=== PATIENT | male | born 1925 | race Caucasian/White ===

== ENCOUNTER 2016-10-31 17:55 | Inpatient (IN) | payer MEDICARE, BC ==
[~2016-10-31] VITALS: Ht 182.9 cm; Wt 60.1 kg
--- NOTE | ~2016-10-31 | CON ---
PATIENT'S NAME: THOMAS MARKS [facility] AGE: 89 Y [address] ROOM: [id number] [place], [place] [address] LOCATION: GPCU ADMIT DATE: 10/31/2016 Consultation DISCHARGE DATE: FAMILY PHYSICIAN: AIMEE CANADA APRN ATTENDING PHYSICIAN: SHAMAR LERNER DATE OF CONSULTATION: 11/01/2016 REFERRING PHYSICIAN: HARSHA ALBERTS MD A consult to Dr. Morocho. HISTORY OF PRESENT ILLNESS: Thomas Schwartz is an 89-year-old man with an uncharacterized right hilar mass. The history of the present illness is obtained from Mr. Marks, who is a good historian; his son; review of the records by our colleagues in [place], [place]; and from review of the current [facility] record. Mr. Marks was in his normal state of health until early 2013. He [place] with Mrs. Marks. 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 He was on chronic oxygen at 2 L per nasal cannula 24 hours a day. He had a part-time cane. He could drive and sometimes go shopping. Over the last 6 months, his performance status has fallen. He uses a cane, and he needs assist with showering, though he can toilet on his own. He is on no formal or informal exercise or rehabilitation program. He develops dyspnea on exertion if he walks 20 feet on a level surface. He has no cough, but has chronic wheezing. He has become anorexic and has lost 20 pounds over the last 4 months. He is no longer driving a car or shopping. On 10/27/2016, his feet were tangled in his oxygen tank tubes, and he fell. The patient experienced some discomfort in his right hip which still persists, though it is improving. The pain was not disabling enough to seek assistance. However, he has developed progressive dyspnea over the last few days. When the dyspnea persisted, his family insisted he seek medical attention. On 10/31/2016, the patient saw Aimee Canada NP. At that point, the white count was 16,580. The patient had 81% neutrophils and 3% lymphocytes. The hemoglobin was 12 G/dL, the MCV was 99, and the platelets were 197,000. The general chemical profile was unremarkable. A PA and lateral chest film showed a screw fixation in the left humerus. There was a 5.2 cm spiculated mass in the right hilum with subpleural opacities along the upper lobe of the right lung measuring 2.8 to 1.8 cm. There were numerous punctate nodules with interlobular septal thickening, retractile fibrosis, and associated postobstructive atelectasis. There were apical predominant centrolobular emphysematous cysts. There was left basilar platelike atelectasis. A CAT PATIENT'S NAME: THOMAS MARKS [facility] AGE: 89 Y [address] ROOM: [address] [address] LOCATION: GPCU ADMIT DATE: 10/31/2016 Consultation DISCHARGE DATE: FAMILY PHYSICIAN: AIMEE CANADA APRN ATTENDING PHYSICIAN: SHAMAR LERNER A scan of the chest was recommended and performed. The scan confirmed the presence of these abnormalities. The patient was transferred to [facility] for subspecialty evaluation. The patient smoked 1 pack per day of cigarettes for 65 to 70 years, but has abstained for 3 months due to dyspnea. 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 ACTIVE MEDICAL PROBLEMS, CHRONIC AND DIAGNOSED: 1. COLD, treated with continuous oxygen. The patient had pneumonia 45 years ago. The patient has been on albuterol bronchodilators as well. 2. Benign prostatic hypertrophy, treated with alpha blockers. 3. Atherosclerotic heart disease found when the patient required preoperative clearance prior to surgery to fix his right hip. A stent was placed in one of his coronary arteries. 4. Hyperlipidemia. The family and the patient were unaware of this diagnosis which is listed. 5. 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 6. ? Cholelithiasis, ? sludge. The CT scan of the abdomen and pelvis performed at [facility] revealed sludge or sand-like stones in the gallbladder. 7. Tobacco use, one pack per day for 65 to 70 years, abstained since June 2016. 8. Postherpetic neuralgia in a left lumbar dermatome. This is mild. 9. Atherosclerotic vascular disease. The patient has a 4.3 cm infrarenal abdominal aortic aneurysm noted on CAT scan. ACUTE MEDICAL ILLNESSES (RESOLVED), PAST SURGERIES, INJURIES: 1. 1958 - appendectomy. 2. 1996 - TURP for BPH. 3. 2010 - right hip fracture open reduction and internal fixation. This was a result of an injury sustained in a fall. 4. 2012 - right and left cataract extractions. 5. 2013 - left collarbone fracture. 6. 2013 - bilateral inguinal hernia repairs. 7. 2014 - Varicella zoster virus in a left lumbar dermatome. MEDICATIONS UPON HOSPITALIZATION: 1. Albuterol. 2. Cephalexin. PATIENT'S NAME: THOMAS MARKS [facility] AGE: 89 Y [address] ROOM: [place] [address] [facility]: [facility] ADMIT DATE: 10/31/2016 Consultation DISCHARGE DATE: FAMILY PHYSICIAN: AIMEE CANADA APRN ATTENDING PHYSICIAN: SHAMAR LERNER 3. Docusate. 4. Tamsulosin. 5. Tramadol. ADVERSE REACTIONS TO MEDICATIONS, TRANSFUSIONS, ALLERGIES: 1. No known allergies. 2. NO history of transfusions. TOBACCO: One pack per day for 65 to 70 years, abstained since June 2016. ALCOHOL: None for 6 years. One alcoholic beverage a week prior to that. CAFFEINE: Ten cups of coffee per day. IMMUNIZATIONS: Negative flu, negative Pneumovax, positive tetanus. FAMILY HISTORY: A paternal aunt of cancer, type unknown. SOCIAL HISTORY: The patient was born and raised in [place]. 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 He saw combat. 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 They have a son in [place], [place], and a daughter in [place], [place]. The patient is a Buddhism. REVIEW OF SYMPTOMS: 1. Persistent symptoms of BPH with nocturia 4 times a night, slow stream, dribbling, and incomplete voiding. 2. Longstanding stool softener. 3. Mild orthostatic dizziness. 4. He has been scratching a mole on his left hip. PHYSICAL EXAMINATION: VITAL SIGNS: Pulse 72 and regular, blood pressure 110/90, respiratory rate 16, temperature 98.1 and SpO2 of 95% on 2 L. Height 72 inches, weight 54.3 kg (120 pounds), and BMI 16.2 kg/m2. GENERAL: Well-developed, underweight, cachectic, frail, 89-year-old male in no acute distress. HEENT: Unremarkable. LYMPH NODES: Not palpable. PATIENT'S NAME: THOMAS MARKS [facility] AGE: 89 Y [address] ROOM: [address] [address] LOCATION: [facility] ADMIT DATE: 10/31/2016 Consultation DISCHARGE DATE: FAMILY PHYSICIAN: AIMEE CANADA APRN ATTENDING PHYSICIAN: SHAMAR LERNER NECK: Without JVD or carotid bruits. SKIN: Solar and seborrheic keratoses, godinez angiomas, and senile purpura on the dorsal aspect of the forearms. CHEST: Greatly decreased breath sounds bilaterally. CARDIOVASCULAR: Decreased S1 and S2. No murmurs, bruits, or adventitious sounds. ABDOMEN: Healed incision around 10 cm in length, vertical, just lateral to the umbilicus. No masses, tenderness, or megaly. GENITALIA AND RECTAL: Uncircumcised. Casarez catheter in place. EXTREMITIES: Compression devices present on the lower legs. Socks are present. The patient has fingernail clubbing and tobacco stains present. NEUROLOGIC: The patient moves all 4 extremities and is alert and appropriate. IMPRESSION: 1. An 89-year-old man with progressive anorexia, weight loss, fatigue, and dyspnea in association with mild normocytic anemia and a spiculated 5.2 cm right suprahilar mass with spiculated subpleural opacities. The mass has increased from 4 cm in March of 2016. 2. 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 RECOMMENDATIONS: Diagnostic: 1. Consult Pulmonary for consideration of bronchoscopy with biopsy. 2. Further staging studies depend on the results on the tissue, the prognosis and outlook without them, and the potential therapeutic choices. Treatment: 1. No antineoplastic therapy at this point. 2. Continue other medications. Patient Education: 1. Told that it is most likely he has tobacco-related lung cancer. 2. I made the point that if we confirm the diagnosis, we would weigh the pros and cons of staging x-rays, testing the tissue for biomarkers, and treatment choices. 3. Acknowledge we are not 100% sure it is cancer without a biopsy. MD MO CHEUNG/gregory PATIENT'S NAME: THOMAS MARKS [facility] AGE: 89 Y [address] ROOM: [place] [address] LOCATION: [facility] ADMIT DATE: 10/31/2016 Consultation DISCHARGE DATE: FAMILY PHYSICIAN: AIMEE CANADA APRN ATTENDING PHYSICIAN: SHAMAR LERNER /[id number] CC: AIMEE CANADA APRN d: 11/01/16 1713 t: 11/02/16 1617, CONSULTATION REPORT
--- NOTE | ~2016-10-31 | ECHO ---
Transthoracic Echocardiography Report (TTE) Demographics Patient Name THOMAS MADDOX Date of Study 11/02/2016 Patient Number [id number] Visit Number [id number] Date of 1925 Room Number G6321 Accession Number [id number] Gender Male Age 89 year(s) Referring Shaheen Farias MD Mold Cutting Machine Operator Tamanna Smith RVT Physician Nancie Sauceda MD Physician Interpreting [facility] Line Operator Physician Sulma BOWMAN Supervising Ordering Physician Shaheen Farias MD/EDMUNDO BOWMAN Nurse Stress Pen And Pencil Repairer Conclusions Contractility Score Summary Normal Left Ventricular contractility was noted. Summary Normal LV size and systoilc function. The estimated left ventricular ejection fraction is 55-60%. Diastolic assessment reveals Grade I diastolic dysfunction. Mildly dilated RV with normal RV systolic function. Negative bubble study. Mild calcification of the mitral valve. No significant valvular abnormalities. No evidence of pericardial effusion. Procedure Type of Study TTE procedure:2D Echocardiogram. Procedure Date Date: 11/02/2016 Start: 07:58 AM Study Location: Inpatient Portable Technical Quality: Adequate visualization Indications:Dyspnea/SOB and Shortness of breath. Appropriate Use Criteria: 9 Patient Status: Routine HR: 57 bpm BP: 124/60 mmHg M-Mode/2D Measurements LV Diastolic Dimension: 4.46 cm LV Systolic Dimension: 3.07 cm LV Septum Diastolic: 0.91 cm LV PW Diastolic: 1.01 cm AO Root Dimension: 2.2 cm Cardiac Output: 3.88 l/min AV Cusp Separation: 1.7 cm RV Diastolic Dimension: 2.22 cm LVOT: 2 cm LVOT VTI: 21.7 cm RV Base: 2.34 cm LV Stroke volume: 68.14 ml RV Length: 5.24 cm TAPSE: 2.14 cm TDI-S': 13 cm/s Doppler Measurements AV Peak Velocity: 1.45 m/s MV Peak E-Wave: 0.66 m/s AV Peak Gradient: 8.41 mmHg MV Peak A-Wave: 0.91 m/s AV Mean Gradient: 4 mmHg MV E/A Ratio: 0.72 LVOT Peak Velocity: 0.9 m/s MV P1/2t: 73 msec TR Gradient:19.54 mmHg PV Peak Velocity: 0.82 m/s Estimated RAP:10 mmHg PV Peak Gradient: 2.69 mmHg Estimated RVSP: 30 mmHg Estimated PASP: 29.54 mmHg E' Septal Velocity: 0.08 m/s A' Septal Velocity: 0.13 m/s E' Lateral Velocity: 0.08 m/s A' Lateral Velocity: 0.13 m/s Findings Left Ventricle Diastolic assessment reveals Grade I diastolic dysfunction. Right Ventricle Mildly dilated RV with normal RV systolic function. Left Atrium Normal left atrial size. Right Atrium IVC measures 1.8 cm with partial inspiratory collapse. Negative bubble study. Mitral Valve Mild calcification of the mitral valve. Aortic Valve Normal aortic valve structure and function. Tricuspid Valve Trivial tricuspid regurgitation by color Doppler. Pulmonic Valve Normal pulmonic valve structure and function. Pericardial Effusion No evidence of pericardial effusion. Miscellaneous Visualized portions of the aortic root and ascending aorta appear normal in size. Pleural Effusion No evidence of pleural effusion. Contractility Score LV regional wall motion:(0-Non visualized 1-Normal 2-Hypokinesis 3-Akinesis 4-Dyskinesis 5-Aneurysm) Signature dtt: SULMA PLASCENCIA dtd: 11/02/16 0758 Physician Self Edit
--- NOTE | ~2016-10-31 | HP ---
PATIENT'S NAME: THOMAS MADDOX [facility] AGE: 89 Y [address] ROOM: G6321 [place], [place] [address] [facility] ADMIT DATE: 10/31/2016 History & Physical DISCHARGE DATE: FAMILY PHYSICIAN: AIMEE HAWK APRN ATTENDING PHYSICIAN: SHAMAR LERNER DATE OF SERVICE: CHIEF COMPLAINT: Shortness of breath and productive cough, worsening since yesterday. HISTORY OF PRESENT ILLNESS: This is an 89-year-old male, who has a longstanding history of smoking for more than 70 years. He quit just roughly three months ago. He smokes about one pack per day. He has a history of COPD with 2 L of oxygen nasal cannula 24 at home. The story is that at baseline, his COPD, he has a daily yellowish productive cough with exertional dyspnea. He says that roughly one week ago, when he was at home walking, he tripped and he fell, but he denies any loss of consciousness or any head trauma. Yesterday, he has been having this worsening cough and worsening shortness of breath. Therefore, he went to see his primary care provider, who in return referred him to the [facility] for evaluation. He was there for one day yesterday, where they treated him with IV Levaquin for a post-obstructive pneumonia based on the chest x-ray and on the CT scan of the chest that were performed yesterday. The CT scan yesterday showed there was a right suprahilar mass concerning for malignancy. Given the leukocytosis and the worsening cough and shortness of breath, the patient was treated with a chronic obstructive pulmonary disease exacerbation with IV Levaquin and some steroids, and also some nebulization and oxygen. Due to the mass that required biopsy to confirm malignancy, the patient was referred here today for further care. Besides that, the patient denied any other complaints. REVIEW OF SYMPTOMS: As mentioned in the history of present illness. All other systems were reviewed and they were negative, except those mentioned in the history of present illness. PAST MEDICAL HISTORY: 1. Benign prostatic hypertrophy. 2. Coronary artery disease, status post one stent placed 6 years ago. 3. COPD, on 2 L oxygen nasal cannula 24/7. 4. Hyperlipidemia. PATIENT'S NAME: [facility] AGE: 89 Y [address] ROOM: [place] [address] LOCATION: GPCU ADMIT DATE: 10/31/2016 History & Physical DISCHARGE DATE: FAMILY PHYSICIAN: AIMEE HAWK APRN ATTENDING PHYSICIAN: SHAMAR LERNER ALLERGIES: NONE. HOME MEDICATIONS: Currently have been reconciled. SOCIAL HISTORY: He is a former cigarette smoker. He smoked about one pack per day for 70 years. He quit about 3 months ago. He denies any alcohol and denies any illegal drug use. PAST SURGICAL HISTORY: 1. Bilateral inguinal hernia surgery in the past. 2. Appendectomy. 3. Cardiac stents placed x1 five years ago. 4. Right hip surgery in the past. 5. Left shoulder surgery in the past. FAMILY HISTORY: Both parents from old age. He does not remember much about their past medical problems. PHYSICAL EXAMINATION: VITAL SIGNS: Temperature was 98, blood pressure was 138/95, respirations were 16, saturations were 92% on 2 L nasal cannula, and heart rate was 86. GENERAL APPEARANCE: Alert and oriented x3. Currently, in no acute distress. HEENT: Pupils were equally round and reactive to light. Extraocular muscles are intact. Anicteric sclerae. Nasal turbinates are normal bilaterally. Moist oral mucosa. NECK: No JVD. CARDIOVASCULAR: Regular rate and rhythm. No murmur. No rubs. No gallops. Normal S1 and S2. RESPIRATORY: Decreased breath sounds diffusely. No obvious wheezing, crackles, rales, or rhonchi. ABDOMEN: Soft, nontender, and nondistended. Bowel sounds were present. No mass. EXTREMITIES: No edema in upper or lower extremities. NEUROLOGICAL: Grossly nonfocal. SKIN: No ulcer. No rash. No cyanosis. LABORATORY DATA: Currently, all labs are pending. They have been drawn right now. IMAGING STUDIES: Chest x-ray and the CT scan of the chest were performed from the outside PATIENT'S NAME: THOMAS MADDOX [facility] AGE: 89 Y [address] ROOM: [place] [address] LOCATION: GPCU ADMIT DATE: 10/31/2016 History & Physical DISCHARGE DATE: FAMILY PHYSICIAN: AIMEE HAWK APRN ATTENDING PHYSICIAN: SHAMAR LERNER A facility yesterday, and the imaging was already put in the PACS. The CT scan of the chest showed that there was a large right suprahilar mass concerning for malignancy. Refer to the report in the chart for details. Currently, the chart is in the front office manager. ASSESSMENT AND PLAN: 1. Regarding his acute on chronic respiratory failure secondary to chronic obstructive pulmonary disease exacerbation from sepsis from post-obstructive pneumonia in the setting of a lung mass concerning for malignancy (sepsis order set completed and is in chart, sepsis time detected at 10:30PM): Treating the chronic obstructive pulmonary disease exacerbation with triple antibiotics of IV Levaquin, IV Zosyn, and IV vancomycin and also nebulizations with DuoNeb and albuterol as well as Solu-Medrol for steroids. Oxygen nasal cannula to keep saturation for more than 88%. Also, sputum culture for Gram stain, also urinalysis, and also urine for antigen for Legionella and also for pneumococcal. I will get a Pulmonology consult in the morning for possible bronchoscopy to do a biopsy. In addition, we will get an Oncology consult for further management for the high likelihood of lung cancer. To screen for metastasis, I will also get a CT of abdomen and pelvis tomorrow morning to rule out any possible distant metastases. The patient denies any neurological symptoms at the moment. I will not do a CT scan of the head unless he exhibits any neurological symptoms or deficits. N.p.o. after midnight. Further plan will depend on clinical course. We will also get a sputum culture Gram stain. For cough, I will do the Mucinex. 2. Regarding his chronic coronary artery disease: Currently, no active issue. He denies any chest pain. Continue telemetry monitoring. 3. Regarding his benign prostatic hypertrophy: We will continue the home medication including Flomax. The patient currently denies any urinary difficulty. 4. Regarding his hyperlipidemia: The home medications currently are being reconciled. If he is on any medication for cholesterol, we will continue that. 5. He is a do not resuscitate/do not intubate. 6. Deep venous thrombosis prophylaxis. We will do compression devices. Time spent in care on the day of admission was 45 minutes, where 10 minutes was spent on chart review, and the remainder of the time was spent in interview and the physical examination and counseling. The consult includes going over the plan of care in detail with the patient and the patient's son at the bedside. In addition, I answered all their questions and their concerns to their satisfaction. In addition, I went over the plan of care in detail with the nurse. Further plan will depend on clinical course. I also went over the plan of care with the Respiratory therapist. PATIENT'S NAME: THOMAS MADDOX [facility] AGE: 89 Y [address] ROOM: [address] [address] [facility] ADMIT DATE: 10/31/2016 History & Physical DISCHARGE DATE: FAMILY PHYSICIAN: AIMEE HAWK APRN ATTENDING PHYSICIAN: SHAMAR LERNER MD FERNY BLAKELY/gregory /[id number] D: [id number] T: [id number] HISTORY & PHYSICAL
--- NOTE | ~2016-10-31 | CON ---
PATIENT'S NAME: THOMAS MADDOX [facility] AGE: 89 Y [address] ROOM: [id number] [place], [place] [address] LOCATION: GPCU ADMIT DATE: 10/31/2016 Consultation DISCHARGE DATE: 11/03/2016 FAMILY PHYSICIAN: AIMEE HAWK APRN ATTENDING PHYSICIAN: Kati Parks DATE OF CONSULTATION: 11/01/2016 REFERRING PHYSICIAN: Gianna Maguire MD INDICATION: Right lung mass with possible need for bronchoscopy with biopsies. HISTORY OF PRESENT ILLNESS: This is an 89-year-old male, transferred from [facility] last night for higher level of care. He has a history of COPD, chronic respiratory failure, tobacco use up until about 3 months ago, CAD, BPH, and elevated cholesterol. He reports that he has had COPD for "years," but no history of exacerbations or hospitalizations. He has never had PFTs. He uses albuterol at home and no other inhalers. He was placed on oxygen 2 L per nasal cannula continuously about 3 years ago. His baseline dyspnea on exertion is fairly severe with him only being able to do minimal activity. He also notes a productive cough with yellow white sputum. He reports a week ago he had a mechanical fall and the other day his son who checks on him daily noticed that he appeared more short of breath than usual, so he was taken to the clinic for evaluation. At the clinic, they subsequently sent him to the hospital where he had a chest x-ray and then a CT of the chest showing a hilar mass along with other nodules, severe emphysema and atelectasis. The concern is for malignancy, so the patient was sent here for possible biopsies. He was started on antibiotics and steroids for postobstructive pneumonia at the [facility], and is currently on Zosyn, Levaquin, and vancomycin IV. He was given 125 mg of Solu- Medrol initially and today I start 60 mg b.i.d. Currently, he reports that he is comfortable at rest, but with just sitting at the side of the bed, he is short of breath and gets very winded. This is a little worse than usual. He denies any hemoptysis, wheezing, increased cough, edema, lightheadedness, or chest pain. He reports excessive daytime sleepiness, weight loss, and poor appetite. He denies any fevers, chills, nausea, or vomiting. He has been a smoker for over 70 years 1 pack per day at least and quit 3 months ago. PAST MEDICAL HISTORY: Includes COPD, chronic respiratory failure, tobacco use, CAD, BPH, and elevated cholesterol. ALLERGIES: SEE MAR. PATIENT'S NAME: THOMAS MADDOX [facility] AGE: 89 Y [address] [place] [facility] [place] [address] LOCATION: GPCU ADMIT DATE: 10/31/2016 Consultation DISCHARGE DATE: 11/03/2016 FAMILY PHYSICIAN: AIMEE HAWK APRN ATTENDING PHYSICIAN: Kati Parks MEDICATIONS: See MAR. FAMILY HISTORY: Denies any family history of lung disease. SOCIAL HISTORY: He lives alone, but has family who checks on him frequently. He is a former tobacco user for 70 years, at least 1 pack per day and quit 3 months ago. REVIEW OF SYSTEMS: All review of systems are negative except what is noted in the HPI. PHYSICAL EXAMINATION: VITAL SIGNS: Blood pressure 117/86, pulse 84, respirations 18, and temperature 98.3. He is 97% on 3 L O2. GENERAL: This is an 89-year-old, frail appearing male, who is alert and oriented x3 and appears in no acute distress at the time of exam. HEENT: Head: Normocephalic, atraumatic. Eyes, clear. NECK: Supple. No adenopathy. No carotid bruits or JVD. LUNGS: With a few rales and rhonchi at the bases. HEART: Regular rate and rhythm without murmur, gallop, or rub. ABDOMEN: Soft, nontender, nondistended. Bowel sounds x4. EXTREMITIES: No cyanosis, clubbing, or edema. DIAGNOSTIC DATA: ABG showed a pH of 7.38, pCO2 of 45, pO2 of 74, bicarb 29.9. Lactate 0.9. ProBNP 576. Sodium 140, potassium 4.1, BUN 18, creatinine 1.2. WBC 6.7, hemoglobin 9.7, hematocrit 30.1, platelets 157. Procalcitonin 0.4. ASSESSMENT AND PLAN: 1. Right lung mass, which is concerning for malignancy. 2. Rftay-tn-lyojekj respiratory failure, improved secondary to chronic obstructive pulmonary disease exacerbation. 3. Chronic obstructive pulmonary disease exacerbation, improved. Currently on Zyvox, Levaquin, and IV Zosyn along with IV Solu-Medrol 60 mg b.i.d., along with bronchodilators every 4 hours. 4. Former tobacco use. 5. Weight loss. 6. Elevated proBNP, consider echo. 7. Severe emphysema on recent CT, without any history of PFTs. Overall, the patient has a poor functional status score of 4; diagnosed with a right upper lung mass, suspicious of malignancy. CT of the abdomen and pelvis done did not reveal any metastatic disease, but he will need further staging PATIENT'S NAME: THOMAS MADDOX [facility] AGE: 89 Y [address] ROOM: [id number] [place] [id number] LOCATION: GPCU ADMIT DATE: 10/31/2016 Consultation DISCHARGE DATE: 11/03/2016 FAMILY PHYSICIAN: AIMEE HAWK APRN ATTENDING PHYSICIAN: Kati Parks done with CT of the chest with contrast, PET scan, and MRI of the brain. We discussed the options with the patient and family that he has a very high risk of being ventilator dependent if he gets electively intubated and placed on a mechanical ventilation for the bronchoscopy and biopsy. Even if malignancy is diagnosed, he is not a surgical candidate from a pulmonary standpoint considering end-stage lung disease and O2 dependency and his poor functional status. He will probably not be a suitable candidate for chemotherapy as well, although there is some role of immunotherapy in certain types of lung cancer, but it is uncertain how much those are going to be helpful in improving his quality of life and offering him survival benefit of meaningful duration. We discussed with Oncology and the patient's family about the above details. They are going to talk amongst themselves and consider the options. If they decide to go forward with the procedure after considering the above facts and accepting the high-risk of ventilatory dependency, we will do a bronchoscopy with endobronchial biopsies tomorrow. Further recommendations will be made pending their decisions and the course of his stay. Thank you for the consultation and participation in the patient's care. JENNIFER VELOZ APRN FOR MD ZOILA HOANG/modl /[id number] d: 11/20/16 1035 t: 12/04/16 1710, CONSULTATION REPORT
--- NOTE | ~2016-10-31 | DS ---
PATIENT'S NAME: THOMAS MADDOX [facility] AGE: 89 Y [address] ROOM: [address] [place], [place] [address] LOCATION: GPCU ADMIT DATE: 10/31/2016 Discharge Summary DISCHARGE DATE: 11/03/2016 FAMILY PHYSICIAN: AIMEE HAWK APRN ATTENDING PHYSICIAN: Kati Parks FINAL DIAGNOSES: 1. Rzfos-uh-qllvlmz hypoxic respiratory failure. 2. Right lung mass. 3. Postobstructive pneumonia. 4. Chronic obstructive pulmonary disease exacerbation. 5. Coronary artery disease. 6. Benign prostatic hypertrophy. 7. Dyslipidemia. HISTORY OF PRESENT ILLNESS: Please see the history and physical dictated by Dr. Morocho. In short, the patient was transferred from the [facility] after presenting there with an elevated white blood cell count. Chest x-ray did show a mass in the hilum and evidence of a pneumonia; subsequently, a CT scan, which did confirm the 5.2 cm right hilar mass and the postobstructive pneumonia. At that time, he was transferred to [facility] for potential bronchoscopy as well as ability to get Oncologic Services. The patient also had hqlvb-ly-ydtpcki hypoxic respiratory failure. LABORATORY DATA: On admission, pH 7.43, pCO2 45, pO2 74, and O2 sat was 95% on 3 L. Sodium on admission was 138, potassium 3.9, chloride 102, CO2 29, BUN 19, creatinine 1.4, and magnesium 2.1. Pro-BNP 576. Hemoglobin A1c was 5.7. White blood cell count on admission was 9.3 with a hemoglobin of 10.1, hematocrit 39.1, MCV 97.9, and platelet count 153. PTT 31, pro-time 11.2, INR 1.07. Procalcitonin on admission was 0.46. Urinalysis did not show any evidence of infection. X-RAY DATA: CT scan of the abdomen and pelvis looking for potential metastases did not show any evidence of metastatic disease. 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 A chest x-ray showed a large spiculated mass in the right parahilar region. CARDIOLOGY DATA: Echocardiogram returned showing the ejection fraction to be 55% to 60%. He had grade 1 diastolic dysfunction. He had a mildly dilated right ventricle, negative bubble study. HOSPITAL COURSE: The patient was admitted to the floor and started on IV Levaquin and IV Zyvox for postobstructive pneumonia. Pulmonary was consulted for bronchoscopy. Oncology was consulted. CT scan of the abdomen and pelvis was obtained. The patient was kept n.p.o. overnight for potential PATIENT'S NAME: THOMAS MADDOX [facility] AGE: 89 Y [address] ROOM: [address] [address] LOCATION: GPCU ADMIT DATE: 10/31/2016 Discharge Summary DISCHARGE DATE: 11/03/2016 FAMILY PHYSICIAN: AIMEE HAWK APRN ATTENDING PHYSICIAN: Kati Parks bronchoscopy. It was postponed because of not having older records available to assess his pulmonary functions. His oxygen requirements decreased to his usual level at home. Pulmonary did review the data and there was concern that he would be very high-risk for morbidity from having the bronchoscopy. Dr. Tristan Garcia did see him from an oncologic standpoint and without having the ability to do a biopsy that there is really not much that could be done in terms of treatment. He did discuss with them hospice or Palliative Care consult. The family did state that at this time that they would like to be able to return to home. Arrangements were made for the patient to be accepted at the [facility] on the morning of November 03. He will have a regular diet. He is in no intubation and no code. We did talk about Hospice Services. Weightbearing as tolerated. PT, OT, and oxygen at 2 L per nasal cannula. MEDICATIONS: 1. Lovenox 40 mg subcu every 24 hours. 2. Humibid LA 1200 mg twice daily. 3. NovoLog mild sliding scale. 4. Flomax 0.4 mg at bedtime. 5. DuoNeb inhaled every 4 hours during the day. 6. Tylenol 650 mg every 4 hours as needed for pain or temp. 7. Dextrose 25 mL on sliding scale on the hypoglycemia protocol. 8. Glucagon 1 mg subcu on the hypoglycemia protocol. 9. Glucose 16 mg on the hypoglycemia protocol. 10. Colace 100 mg twice daily. 11. Albuterol inhaled every 2 hours as needed for shortness of breath or cough. 12. Tramadol 50 mg twice daily p.r.n. pain. 13. Invanz 1 g IV q.24 h. through November 10. 14. Levaquin 750 mg every 48 hours through November 10. 15. Prednisone 20 mg twice daily for 7 days then 20 mg daily for 7 days then 10 mg daily for 7 days then 5 mg daily. 16. Florastor 250 mg twice daily. PROGNOSIS: Overall, prognosis at discharge is poor. We will ask for hospice consult. I did discuss this with Dr. Lozano and also discussed this with Dr. Garcia and Dr. Maguire. DARVIN ARAGON MD LAW/modl PATIENT'S NAME: THOMAS MADDOX [facility] AGE: 89 Y [address] ROOM: [place] [address] LOCATION[facility] ADMIT DATE: 10/31/2016 Discharge Summary DISCHARGE DATE: 11/03/2016 FAMILY PHYSICIAN: AIMEE HAWK APRN ATTENDING PHYSICIAN: Kati Parks /[id number] d: 11/02/16 2353 t: 11/07/16 1116, DISCHARGE SUMMARY
[2016-10-31] MEDS ORDERED: ALBUTEROL2.5 MG/31 INH (21:55)
[2016-10-31] MEDS ORDERED: FLOMAX0.4 MG PO (21:56)
[2016-10-31] MEDS ORDERED: COLACE100 MG PO (21:56)
[2016-10-31] MEDS ORDERED: PROVENTIL OR V6.7 GM INH (21:57)
[2016-10-31] MEDS ORDERED: ULTRAM50 MG PO (21:57)
[2016-10-31] MEDS ORDERED: KEFLEX500 MG PO (21:59)
[2016-10-31 22:19] LABS: BICARBONATE 29.9 mmol/L (18.0-23.0); LACTATE 1.1 mEq/L (0.50-1.60); PCO2 45 mmHg (35-45); PO2 74 mmHg (80-90)
[2016-10-31 22:26] LABS: BASOPHIL % 0.4 %; EOSINOPHIL # 0.8 K/uL (0.0-0.5); EOSINOPHIL % 8.2 %; HEMATOCRIT 31.9 % (33.0-50.0); HEMOGLOBIN 10.1 g/dL (11.0-16.0); IMMATURE GRANULOCYTE % 0.2 %; LYMPHOCYTE # 0.8 K/uL (0.8-4.0); LYMPHOCYTE % 8.2 %; MCHC 31.7 gm/dL (32.0-36.5); MCV 97.9 fl (83.0-98.0); MONOCYTE # 0.8 K/uL (0.0-1.0); MONOCYTE % 8.1 %; MPV 10.7 fl (9.4-12.4); NEUTROPHIL % 74.9 %; NRBC % 0 /100WBC (0-0.00); PLATELET COUNT 153 K/uL (150-450); RBC 3.26 M/uL (3.50-5.50); RDW-CV 13.5 % (11.9-14.6); WBC 9.3 K/uL (4.0-11.0)
[2016-10-31 22:32] LABS: INR - (THERAPEUTIC) 1.07 (0.92-1.07); PROTIME 11.2 SECONDS (9.8-11.4); PTT 31 SECONDS (25-32)
[2016-10-31 22:48] LABS: ALBUMIN 2.8 gm/dL (3.5-5.0); ANION GAP 10.9 (10.0-19.0); CREATININE 1.4 mg/dL (0.6-1.3); MAGNESIUM 2.1 mg/dL (1.8-2.6); PHOSPHORUS 2.5 mg/dL (2.5-4.9); POTASSIUM 3.9 mMol/L (3.7-5.1); TOTAL BILIRUBIN 0.5 mg/dL (0.0-1.5); TOTAL PROTEIN 6.9 g/dL (6.0-8.4)
[2016-11-01 02:07] LABS: BILIRUBIN URINE NEGATIVE (NEGATIVE); BLOOD URINE NEGATIVE /UL (NEGATIVE); COLOR URINE YELLOW (YELLOW); GLUCOSE URINE NEGATIVE (NEGATIVE); KETONE URINE NEGATIVE (NEGATIVE); LEUKOCYTES URINE NEGATIVE /UL (NEGATIVE); NITRITE URINE NEGATIVE (NEGATIVE); PROTEIN URINE NEGATIVE (NEGATIVE); TURBIDITY URINE CLEAR (CLEAR); UROBILINOGEN URINE NORMAL (NORMAL)
[2016-11-01 04:08] LABS: HEMATOCRIT 30.1 % (33.0-50.0); HEMOGLOBIN 9.7 g/dL (11.0-16.0); MCH 31.4 pg (27.0-34.0); MCHC 32.2 gm/dL (32.0-36.5); MCV 97.4 fl (83.0-98.0); MPV 10.9 fl (9.4-12.4); RBC 3.09 M/uL (3.50-5.50); RDW-CV 13.7 % (11.9-14.6); WBC 6.7 K/uL (4.0-11.0)
[2016-11-01 04:24] LABS: ANION GAP 11.1 (10.0-19.0); CALCIUM 8.2 mg/dL (8.5-10.5); CREATININE 1.2 mg/dL (0.6-1.3); POTASSIUM 4.1 mMol/L (3.7-5.1)
[2016-11-02 05:02] LABS: INR - (THERAPEUTIC) 1.11 (0.92-1.07); PROTIME 11.7 SECONDS (9.8-11.4); PTT 33 SECONDS (25-32)
[2016-11-02 05:09] LABS: ANION GAP 14.1 (10.0-19.0); CALCIUM 8.3 mg/dL (8.5-10.5); CREATININE 1.3 mg/dL (0.6-1.3); POTASSIUM 4.1 mMol/L (3.7-5.1)
[2016-11-02 05:10] LABS: HEMATOCRIT 29.7 % (33.0-50.0); HEMOGLOBIN 9.4 g/dL (11.0-16.0); MCH 30.6 pg (27.0-34.0); MCHC 31.6 gm/dL (32.0-36.5); MCV 96.7 fl (83.0-98.0); MPV 11.3 fl (9.4-12.4); PLATELET COUNT 157 K/uL (150-450); RBC 3.07 M/uL (3.50-5.50); RDW-CV 13.5 % (11.9-14.6); WBC 9.2 K/uL (4.0-11.0)
[2016-11-02 05:51] LABS: ABSOLUTE NEUTROPHIL CT (ANC) 8.6 K/uL (1.4-9.0); BANDED NEUTROPHIL # 0.6 K/uL (0.0-0.1); BANDED NEUTROPHILS % 6 %; LYMPHOCYTE # 0.4 K/uL (0.8-4.0); LYMPHOCYTE % 4 %; MONOCYTE # 0.3 K/uL (0.0-1.0); SEGMENTED NEUTROPHIL % 87 %
== END 2016-11-03 09:55 | disposition swing bed (61) | DRG 189 ==
LOC: GPCU 20:39
PROVIDERS: Internal Medicine; Internal Medicine Nephrology; ADMIT Internal Medicine
DX: J96.21 Acute and chronic respiratory failure with hypoxia (principal); J18.9 Pneumonia, unspecified organism; I50.31 Acute diastolic (congestive) heart failure; J44.0 Chronic obstructive pulmonary disease with (acute) lower respiratory infection; J44.1 Chronic obstructive pulmonary disease with (acute) exacerbation; B02.29 Other postherpetic nervous system involvement; R64 Cachexia; Z68.1 Body mass index [BMI] 19.9 or less, adult; I25.10 Atherosclerotic heart disease of native coronary artery without angina pectoris; E78.5 Hyperlipidemia, unspecified; M16.11 Unilateral primary osteoarthritis, right hip; N40.0 Benign prostatic hyperplasia without lower urinary tract symptoms; R91.8 Other nonspecific abnormal finding of lung field; Z87.891 Personal history of nicotine dependence; Z91.81 History of falling; Z99.81 Dependence on supplemental oxygen; Z66 Do not resuscitate
CPT/HCPCS: J1335; J1650; J1956; J2020; J2270; J2543; J2930; J3370; J7030; J7050; P9047